=== PATIENT | male | born 1975 | race Caucasian/White ===

== ENCOUNTER 2019-08-23 18:51 | Emergency (ER) | payer MEDICAID ==
[~2019-08-23] VITALS: Ht 182.9 cm; Wt 105.0 kg
--- NOTE | 2019-08-23 19:07 | NUR ---
BIB [facility]. PT C/O DIZZINESS AND EQUILIBRIUM OFF X 3 DAYS WITH INTERMITTENT NAUSEA. HX PANIC ATTACK, BUT DOESN'T FEEL LIKE THAT. CONNECTED TO MONITORING. CALL LIGHT IN REACH. FAMILY AT BEDSIDE. MD AT BEDSIDE, AWAITING ORDERS AT THIS TIME.
[2019-08-23] MEDS ORDERED: MECLIZINE CHEWABLE 25 MG TAB PO ONE (20:00)
[2019-08-23] MEDS ORDERED: MECLIZINE CHEWABLE 25 MG TAB ONE (20:04)
[2019-08-23 20:08] VITALS: BP 132/91
--- NOTE | 2019-08-23 20:08 | NUR ---
[facility] ADMIN PER NOV. LAB AT BEDSIDE. PT RESTING COMFORTABLY ON GURNEY. FAMILY AT BEDSIDE.
[2019-08-23 20:20] LABS: BASOPHILS # (AUTO) 0.03 x10^3/uL (0-0.1); BASOPHILS % (AUTO) 0 % (0-1); EOSINOPHILS # (AUTO) 0.09 x10^3/uL (0-0.4); EOSINOPHILS % (AUTO) 1 % (1-7); LYMPHOCYTES # (AUTO) 1.59 x10^3/uL (1-3.4); LYMPHOCYTES % (AUTO) 20 % (22-44); MD NO; MEAN CORPUSCULAR HEMOGLOBIN 30.5 pg (27.5-34.5); MEAN CORPUSCULAR HGB CONC 33.8 g/dL (33.2-36.2); MEAN CORPUSCULAR VOLUME 90.3 fL (81-97); MEAN PLATELET VOLUME 8.4 fL (7.4-10.4); MONOCYTES # (AUTO) 0.47 x10^3/uL (0.2-0.8); MONOCYTES % (AUTO) 6 % (2-9); NEUTROPHILS # (AUTO) 5.79 x10^3/uL (1.8-6.8); NEUTROPHILS % (AUTO) 73 % (42-75); PLATELET COUNT 272 x10^3/uL (130-400); RED BLOOD COUNT 5.87 x10^6/uL (4.38-5.82); RED CELL DISTRIBUTION WIDTH 13.1 % (9.4-14.8)
[2019-08-23 20:27] LABS: ALBUMIN 4.4 g/dL (3.4-5.0); ANION GAP 7 mmol/L (5-15); CALCIUM 9.4 mg/dL (8.5-10.1); CHLORIDE 110 mmol/L (98-107); CREATININE 0.94 mg/dL (0.7-1.3)
--- NOTE | 2019-08-23 20:41 | NUR ---
ALL RESULTS ARE BACK AT THIS TIME. CHART UP FOR RECHECK.
--- NOTE | 2019-08-23 21:29 | NUR ---
PT AMBULATED TO D/C DESK, PT STATED " I'M NOT FEELING WELL, DIZZINESS", ASSISTED PT INTO W/C, FAMILY AT HIS SIDE, NOTIFIED MEREDITH HOLT. JONATHON TO UPDATE ERP ON PT STATUS
[2019-08-23] MEDS ORDERED: DIPHENHYDRAMINE 25 MG CAPSULE PO ONE (21:30)
[2019-08-23] MEDS ORDERED: DIPHENHYDRAMINE 50 MG CAPSULE ONE (21:30)
--- NOTE | 2019-08-23 21:33 | NUR ---
PT REASSESSED BY . N/O FOR BENADRYL RECEIVED AND MED GIVEN. PT REASSURED BY MD ABOUT DC. PT TO BE WHEELED TO CAR BY FAMILY AFTER DC.
== END 2019-08-23 21:35 ==
LOC: ED 21:04
DX: H83.03 Labyrinthitis, bilateral (principal); R55 Syncope and collapse; I10 Essential (primary) hypertension; R42 Dizziness and giddiness
CPT/HCPCS: 36415; 80048; 82040; 85025; 93005; 99284; Q0163

== ENCOUNTER 2019-10-01 20:03 | Emergency (ER) | payer SELFPAY ==
[~2019-10-01] VITALS: Ht 182.9 cm; Wt 108.1 kg
[2019-10-01 20:37] LABS: MICROSCOPIC INDICATED
[2019-10-01 20:41] LABS: BASOPHILS # (AUTO) 0.05 x10^3/uL (0-0.1); BASOPHILS % (AUTO) 1 % (0-1); EOSINOPHILS # (AUTO) 0.14 x10^3/uL (0-0.4); EOSINOPHILS % (AUTO) 2 % (1-7); LYMPHOCYTES # (AUTO) 2.06 x10^3/uL (1-3.4); LYMPHOCYTES % (AUTO) 32 % (22-44); MD NO; MEAN CORPUSCULAR HEMOGLOBIN 30.2 pg (27.5-34.5); MEAN CORPUSCULAR HGB CONC 34.3 g/dL (33.2-36.2); MEAN CORPUSCULAR VOLUME 88.2 fL (81-97); MEAN PLATELET VOLUME 8.4 fL (7.4-10.4); MONOCYTES # (AUTO) 0.44 x10^3/uL (0.2-0.8); MONOCYTES % (AUTO) 7 % (2-9); NEUTROPHILS # (AUTO) 3.77 x10^3/uL (1.8-6.8); NEUTROPHILS % (AUTO) 59 % (42-75); PLATELET COUNT 261 x10^3/uL (130-400); RED BLOOD COUNT 5.44 x10^6/uL (4.38-5.82); RED CELL DISTRIBUTION WIDTH 12.7 % (9.4-14.8)
[2019-10-01 20:46] LABS: CULTURE INDICATED? NO
[2019-10-01 20:51] LABS: ALBUMIN 4.3 g/dL (3.4-5.0); ANION GAP 7 mmol/L (5-15); CALCIUM 9.6 mg/dL (8.5-10.1); CHLORIDE 110 mmol/L (98-107); CREATININE 1.09 mg/dL (0.7-1.3)
--- NOTE | 2019-10-01 20:54 | NUR ---
Patient came to ER for heart palpitations, dizziness, and head pressure. He has had these symptoms for approx six months and has been seeing a perinatal breastfeeding assistant. He was wearing a holter monitor for the last two weeks but had a problem with it so he stopped wearing it. Over the last two days, patient's symptoms have increased and he's also experienced spasms in the right rib area. Patient has had multiple dizzy spells but has not had +LOC. Patient denies pain. Patient is in NAD. Respirations even and unlabored.
[2019-10-01 21:37] LABS: TROPONIN I < 0.015 ng/mL (0.000-0.045)
--- NOTE | 2019-10-01 22:09 | NUR ---
CXR ordered; patient refused stating he doesn't want more radiation.
[2019-10-01 22:17] VITALS: BP 122/73
--- NOTE | 2019-10-01 22:18 | NUR ---
Discharge instructions given. All questions and concerns addressed. Patient amblatory with a steady gait. Belongings with patient.
== END 2019-10-01 22:20 | disposition home or self-care (01) ==
LOC: ED 22:15
DX: R00.2 Palpitations (principal); R07.89 Other chest pain; I10 Essential (primary) hypertension; F41.1 Generalized anxiety disorder
CPT/HCPCS: 36415; 80048; 81001; 82040; 84443; 84484; 85025; 93005; 99284